=== PATIENT | female | born 1955 | race Caucasian/White ===

== ENCOUNTER 2016-03-23 10:21 | Emergency (ER) | payer OTHER ==
[~2016-03-23] VITALS: Ht 152.4 cm; Wt 85.0 kg
[~2016-03-23 10:21] MED LIST: ADVIL,NUPRIN,M200 MG PO; B COMPLETE1 EACH PO; BENADRYL ALLERG25 MG PO; DYAZIDE, MA1 CAPSULE PO; ELAVIL25 MG PO; IRON325 MG PO; K-DUR20 MEQ PO; LOW DOSE ASPIRI81 M1 PO; MULTIPLE VITAM1 EAC1 PO; PERCOCET 5/31 TABLET PO; PRILOSEC20 MG PO; VITAMIN C500 M1 PO
[2016-03-23] MEDS ORDERED: FLEXERIL10 MG PO (10:52)
[2016-03-23] MEDS ORDERED: ULTRAM50 MG PO (10:52)
[2016-03-23] MEDS ORDERED: PREDNISONE10 MG PO (10:52)
[2016-03-23] MEDS ORDERED: LIPITOR20 MG PO (11:01)
[2016-03-23 11:08] VITALS: BP 137/65
== END 2016-03-23 11:10 | disposition home or self-care (01) ==
LOC: EME 10:21
DX: M54.31 Sciatica, right side (principal); M54.5 Low back pain; M62.830 Muscle spasm of back; Z88.6 Allergy status to analgesic agent
CPT/HCPCS: 99281; 99283; J7512